=== PATIENT | male | born 1970 | race Hispanic/Latino ===

== ENCOUNTER → 2023-02-15 | Emergency (ER) | payer BC | LOC: EDH 20:15 | DX: S89.90XA Unspecified injury of unspecified lower leg, initial encounter (principal); Z53.21 Procedure and treatment not carried out due to patient leaving prior to being seen by health care provider; X58.XXXA Exposure to other specified factors, initial encounter; Y93.89 Activity, other specified; Y92.89 Other specified places as the place of occurrence of the external cause; Y99.8 Other external cause status ==